=== PATIENT | female | born 1980 | race Caucasian/White ===

== ENCOUNTER 2018-05-01 09:13 | Observation (INO) | payer BC ==
[~2018-05-01] VITALS: Ht 160 cm; Wt 77.1 kg
[~2018-05-01 09:13] MED LIST: AMITIZA24 MCG PO; LEVOTHYROXINE88 MCG PO; METRONIDAZOLE500 MG PO; PANTOPRAZOLE SO40 MG PO; ULTRAM 50MG50 MG PO; Z.0.LEVOTHYROXINE50; ZOFRAN ODT4 MG PO
--- NOTE | 2018-05-01 09:15 | NUR ---
RECEIVED PT FROM THE LOBBY INTO ER 9. PT GOWNED AND PLACED ON THE MONITOR. C/O PAIN AND NUMBNESS ON THE LEFT SIDE OF HER BODY FROM HER HEAD DOWN TO HER FOOT. PT TEARFUL AND CONCERNED THAT IT MIGHT BE A STROKE BECAUSE HER BROTHER OF A STROKE AT AGE 45 AND HER SISTER OF A STROKE AT AGE 38. SAYS HER MOTHER HAS HAD 3 STROKES.
[2018-05-01] MEDS ORDERED: METOCLOPRAMIDE HCL 10 MG/2ML VIAL IV ONE (09:45)
[2018-05-01] MEDS ORDERED: DIPHENHYDRAMINE HCL INJ 50 MG/ML VIAL IV ONE (09:45)
[2018-05-01] MEDS ORDERED: SODIUM CHLORIDE 0.9% 1000ML 1,000 ML IV SCH (09:45)
--- NOTE | 2018-05-01 10:33 | Diagnostic Imaging Report ---
Examination: CT head without contrast Clinical Indication: Left-sided weakness. Technique: Transaxial noncontrast images from the skull base through the vertex were obtained. Sagittal and coronal reformatted images were done. Dose modulation, iterative reconstruction, and/or weight based adjustment of the mA/kV was utilized to reduce the radiation dose to as low as reasonably achievable. Comparison: None. Findings: Scalp: No abnormalities. Bones: Intact. No fractures. No blastic or lytic lesions. Brain sulci: Appropriate for patient's age. Ventricles: Normal in size and configuration. No hydrocephalus. Extra-axial space: No abnormalities. Parenchyma: No abnormal densities. No masses, hemorrhage, or acute or chronic cortical based vascular insults. Suprasellar region: No abnormalities. Craniocervical junction: The foramen magnum is patent. No Chiari one malformation. Impression: No intracranial abnormality. Signed by: Dr. Alexa Mart M.D. on 05/01/2018 10:30 AM
[2018-05-01] MEDS ORDERED: ASPIRIN 81 MG CHEW TAB PO ONE (10:45)
[2018-05-01 11:03] LABS: BASOPHILS # (AUTO) 0.1 (0.0-0.1); BASOPHILS % 0.9 % (0.0-1.0); EOSINOPHILS # (AUTO) 0.2 (0.0-0.4); EOSINOPHILS % 2.8 % (0.0-6.0); HEMATOCRIT 41.2 % (34.2-44.1); HEMOGLOBIN 14.2 g/dL (12.0-16.0); LYMPHOCYTES # (AUTO) 1.8 (1.0-3.2); MEAN CORPUSCULAR HEMOGLOBIN 32.1 pg (28-32); MEAN CORPUSCULAR HGB CONC 34.5 g/dL (31-35); MONOCYTES # (AUTO) 0.4 (0.2-0.8); MONOCYTES % 7.5 % (4.4-11.3); NEUTROPHILS # (AUTO) 2.9 (2.1-6.9); NEUTROPHILS % 54.4 % (38.7-80.0); PLATELET COUNT 251 x10e3/uL (140-360); RED BLOOD COUNT 4.43 x10e6/uL (3.6-5.1); RED CELL DISTRIBUTION WIDTH 12.9 % (11.7-14.4)
--- OUTSIDE RECORDS SUMMARY | 2018-05-01 11:14 | XMS REPORT ---
Author Author [facility] Address Unknown Phone Unavailable Care Team Providers Care Fruit Buyer Name Role Phone Hector ANN Unavailable Unavailable Problems This patient has no known problems. Allergies, Adverse Reactions, Alerts This patient has no known allergies or adverse reactions. Medications This patient has no known medications. Results Test Description Test Time Test Comments Text Results Atomic Results Result Comments CT BRAIN WO 2018-05-01 10:29:00 [facility] [address] [address] Patient Name: CHANDLER MARTINEZ MR #: [id number] : 1980 Age/Sex: 37/F Req #: [id number] [facility] Physician: Ordered by: CIARRA ANN MD Report #: [id number] Location: ER Room/Bed: Procedure: [id number] CT/CT BRAIN WO Exam Date: 05/01/18 Exam Time: 1000 REPORT STATUS: Signed Examination: CT head without contrast Clinical Indication: Left-sided weakness. Technique: Transaxial noncontrast images from the skull base through the vertex were obtained. Sagittal and coronal reformatted images were done. Dose modulation, iterative reconstruction, and/or weight based adjustment of the mA/kV was utilized to reduce the radiation dose to as low as reasonably achievable. Comparison: None. Findings: Scalp: No abnormalities. Bones: Intact. No fractures. No blastic or lytic lesions. Brain sulci: Appropriate for patient's age. Ventricles: Normal in size and configuration. No hydrocephalus. Extra-axial space: No abnormalities. Parenchyma: No abnormal densities. No masses, hemorrhage, or acute or chronic cortical based vascular insults. Suprasellar region: No abnormalities. Craniocervical junction: The foramen magnum is patent. No Chiari one malformation. Impression: No intracranial abnormality. Signed by: Dr. Alexa Mart M.D. on 05/01/2018 10:30 AM Dictated By: ALEXA SANTO MD [id number] Transcribed By: ALEXANDRA on 05/01/18 1030 COPY TO: CIARRA ANN MD
[2018-05-01] MEDS ORDERED: TRIAMTERENE-HCTZ1 EA PO (11:51)
[2018-05-01 11:56] LABS: ALANINE AMINOTRANSFERASE 20 IU/L (0-55); ALBUMIN/GLOBULIN RATIO 1.2 (0.8-2.0); ALKALINE PHOSPHATASE 65 IU/L (40-150); ANION GAP 15.8 mmol/L (8-16); BLOOD UREA NITROGEN 20 mg/dL (7-26); BUN/CREATININE RATIO 22 (6-25); CARBON DIOXIDE 20 mmol/L (22-29); CHLORIDE 102 mmol/L (98-107); CREATINE KINASE 213 IU/L (29-168); CREATININE, SERUM 0.91 mg/dL (0.57-1.11); EST GLOMERULAR FILTRATION RATE > 60 ML/MIN (60-); GLUCOSE 122 mg/dL (74-118); POTASSIUM 3.8 mmol/L (3.5-5.1); SODIUM 134 mmol/L (136-145)
[2018-05-01] MEDS ORDERED: HYDRALAZINE HCL 20 MG/ML VIAL IV STA (12:50)
--- NOTE | 2018-05-01 12:50 | NUR ---
SPOKE WITH ER PHYSICIAN ABOUT HYPERTENSION. SHE SAID SHE WILL ORDER SOMETHING. PT SITTING UPRIGHT ON THE STRETCHER RIGHT NOW. NAD. SHE IS PENDING AN MRI AND ADMISSION. PT SAYS SHE FEELS THE SAME. SHE SAID SHE FELT "ICKY" AFTER THE CONTRAST FOR THE CT EARLIER BUT SHE SAID THAT FEELING HAS WORN OFF NOW
--- NOTE | 2018-05-01 14:03 | Diagnostic Imaging Report ---
Examination: MRI BRAIN WITHOUT CONTRAST History: Left-sided weakness Comparison studies: Head CT performed earlier today. Technique: Sagittal T2; axial DWI, FLAIR, GRE or SWI, T1, Coronal FLAIR. Intravenous contrast: None Findings: Scalp: No abnormal signal. No masses. Bone marrow: Normal in signal intensity. Brain volume: Adequate for age. No volume loss. Ventricles: Normal in size and configuration. No hydrocephalus. Extra-axial spaces: No abnormalities. Parenchyma: No abnormal signal intensities. No masses, hemorrhage, acute or chronic vascular insults. Suprasellar and sellar region: No abnormalities. Craniocervical junction: No abnormalities. The foramen magnum is patent. No Chiari malformations. Vessels: Normal flow-voids in the arteries and sinuses. Additional findings:None. IMPRESSION: No acute intracranial abnormalities, specifically, no acute infarct. Signed by: Dr. Alexa Mart M.D. on 05/01/2018 1:59 PM
--- NOTE | 2018-05-01 14:54 | NUR ---
PATIENT RESTING QUIETLY WATCHING TV. NAD NOTED. UPDATED PT ON THE PLAN OF CARE. AWAITING A ROOM FOR ADMIT
[2018-05-01] MEDS ORDERED: AMLODIPINE BESYLATE 10 MG TAB PO SCH (15:45)
--- NOTE | 2018-05-01 15:45 | NUR ---
PT CALLED ME TO BEDSIDE AND SHE WAS IN TEARS. SHE STATED THAT SHE WANTS TO STAY BUT THAT SHE CAN'T. SHE SAID SHE HAS TO LEAVE BECAUSE HER KIDS ARE LOCKED OUT OF THE HOUSE AND SHE DOESN'T HAVE ANYONE WHO CAN LET THEM IN. I SPOKE TO THE ERP AND SHE SAID THAT PT WOULD HAVE TO SIGN OUT AMA. I WAS AT BEDSIDE WITH JAZ NURSE [employer]ER [employer] LOOM AND WE WERE DISCUSSING THE AMA PROCESS WITH THE PATIENT AND THEN DR. ENGLISH WALKED IN THE ROOM AND SAID THAT HE WAS DISCHARGING THE PATIENT HOME. HE TOLD HER THAT HER SYMPTOMS WERE RELATED TO HER HIGH BLOOD PRESSURE AND THAT STROKE WAS RULED OUT.
[2018-05-01 15:54] LABS: BILIRUBIN,URINE NEGATIVE (NEGATIVE); CLARITY,URINE CLOUDY (CLEAR); COLOR,URINE YELLOW (YELLOW); KETONES,URINE NEGATIVE (NEGATIVE); LEUKOCYTE ESTERASE ,URINE NEGATIVE (NEGATIVE); NITRITE,URINE NEGATIVE (NEGATIVE); PROTEIN,URINE DIPSTICK NEGATIVE (NEGATIVE); URINE UROBILINOGEN 0.2 mg/dL (0.2 - 1)
--- NOTE | 2018-05-01 15:55 | NUR ---
THE NORVASC WAS NOT GIVEN BECAUSE PT DID NOT WANT TO WAIT FOR MED ORDER TO CROSS OVER IN THE [facility] SO SHE SAID THAT SHE WOULD GO GET HER PRESCRIPTION FOR NORVASC FILLED RIGHT AWAY AND TAKE IT IMMEDIATELY
--- NOTE | 2018-05-01 16:00 | NUR ---
DISCHARGE INSTRUCTIONS GIVEN. FOLLOW UP CARE DISCUSSED. PT VERBALIZED UNDERSTANDING. DR. ENGLISH PRESCRIBED NORVASC. PRESCRIPTION WAS GIVEN TO THE PATIENT. PT LEFT ER AMBULATORY WITH STEADY GAIT TO POV
[2018-05-01 16:04] VITALS: BP 147/101
[2018-05-01 16:04] LABS: BACTERIA,URINE MANY /HPF
--- NOTE | 2018-05-01 16:13 | NUR ---
CALLED DR. BOCANEGRA TO NOTIFY HER THAT PATIENT WAS DISCHARGED BY DR. ENGLISH. GOT VOICEMAIL. LEFT A VM
--- NOTE | 2018-05-01 16:30 | Consultation ---
DATE OF CONSULTATION: May 01, 2018 NEUROLOGY CONSULTATION HISTORY OF PRESENT ILLNESS: Ms. Tabor is a 37-year-old right hand dominant woman with past medical history significant for pancreatitis and hyperthyroidism, admitted to [facility] on May 01, 2018, with symptoms suspicious for a stroke. Ms. Tabor endorses heaviness over the left side of her body, specifically her left arm and left leg. She does not report weakness in neither her left arm nor her left leg. However, she feels as though the left arm and left leg are "weighed down." Ms. Tabor endorses intermittent numbness and tingling affecting the left arm and left leg as well. The patient does not report a visual field cut or other disturbance, dysarthria, aphasia, facial weakness, or confusion. Ms. Tabor has not experienced similar symptoms previously. The above described symptoms began approximately 10 days ago. Ms. Tabor cannot say whether or not the symptoms began suddenly or came on gradually. However, she does report her symptoms have gradually worsened over the past 10 days. In addition to the above symptoms, Ms. Tabor endorses a headache. When questioned further, it appears the headache is referred neck pain. Ms. Tabor endorses low back pain as well. The patient describes the neck and low back pain as something "digging into it." The neck and low back pain are constant and are rated a 5 to 7 out of 10. Occasionally, there are superimposed, brief sharp pains occurring in the neck and low back. Ms. Tabor does not report photophobia, phonophobia, nausea, or vomiting. She does endorse dizziness but cannot further describe the sensation. Ms. Tabor has a family history significant for cardiovascular disease in multiple relatives. Therefore, due to the presence of the above symptoms, she presented to the emergency center at [facility] for further evaluation of a possible stroke. REVIEW OF SYSTEMS: Numbness and pain over the left arm and left leg, neck and low back pain, dizziness. Otherwise the 12 point review of systems is negative. PAST MEDICAL HISTORY: Prior history of hypertension, hyperthyroidism status post treatment with radiation, "liver stones," and history of pancreatitis. PAST SURGICAL HISTORY: Hysterectomy, right foot/ankle surgery, cholecystectomy, lumbar spine surgery, multiple GI stents. PAST HOSPITALIZATIONS: Surgeries/procedures as listed, childbirth times 1, pancreatitis times 3. FAMILY MEDICAL HISTORY: The patient's paternal grandparents are . Their medical histories are unknown. The patient's maternal grandparents are , both from coronary artery disease with myocardial infarctions. Ms. Tabor's father is from alcoholic cirrhosis. Her mother is . She had 3 strokes. The patient's siblings, 1 brother and 1 sister, are both from strokes. The brother at the age of 45 years. The sister at the age of 38 years. Ms. Tabor has 1 child, a daughter, who is alive. She has a history of Graves disease and reactive arthritis. SOCIAL HISTORY: The patient is . 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 The patient does report a history of tobacco use but quit smoking cigarettes 1 year ago. At present, the patient vapes. The patient does not report alcohol use. She does report occasional marijuana use. HOME MEDICATIONS: Reviewed. Please see the list of home medications available in the electronic medical record. ALLERGIES: PROMETHAZINE. NO KNOWN FOOD ALLERGIES. NO KNOWN ALLERGIES TO LATEX. NO KNOWN ALLERGIES TO IODINE OR OTHER CONTRAST MATERIALS. PHYSICAL EXAMINATION: VITAL SIGNS: Height 63 inches, weight 170 pounds, BMI 30.1 kg per meter squared. Blood pressure 162/114 mmHg. Pulse 74 beats per minute, respiratory rate 18 breaths per minute, oxygen saturation 99% on room air. GENERAL: The patient is awake and alert, does not appear distressed. Overweight. HEENT: Normocephalic, atraumatic. Pupils are equal, round, and reactive to light. Moist mucous membranes. NECK: Supple. No appreciable thyromegaly. No appreciable carotid bruits. CARDIOVASCULAR: S1, S2, regular rate and rhythm. No murmurs, rubs, or gallops. RESPIRATORY: Clear to auscultation bilaterally. No wheezes, rhonchi, or rales. EXTREMITIES: The skin is warm and dry. No clubbing, cyanosis, or edema. The posterior tibial and dorsalis pedis pulses are 2+ and symmetric. SKIN: There is a bruise with a central abrasion over the left foreleg. NEUROLOGIC: Memory/Attention: The patient is awake and alert. Oriented to person, place, time, and situation. Cranial Nerves: Cranial nerve 1--Not tested. Cranial nerve 2, 3, 4, and 6--Pupils are equal and round, react briskly to light (from 4 mm to 2 mm). Extraocular movements intact. No nystagmus. Cranial nerve 5--Sensation to light touch and pinprick is intact in the bilateral V1 through V3 distributions. Strength of the temporalis and masseter muscles is within normal limits. Cranial nerve 7--The face is symmetric as are all facial movements. Strength is within normal limits. Cranial nerve 8--Hearing is intact to finger rub bilaterally. Cranial nerve 9, 10--The soft palate elevates equally and symmetrically. Cranial nerve 11--Normal strength of the bilateral sternocleidomastoid and trapezius muscles. Cranial nerve 12--The tongue protrudes midline and moves symmetrically from side to side. Strength: Bulk is normal. Strength is 5/5 in the bilateral deltoids, biceps, triceps, wrist flexors and extensors, finger flexors and extensors, intrinsic hand muscles, hip flexors, knee flexors and extensors, ankle dorsiflexion and plantarflexion, and intrinsic foot muscles. Tone is normal. DTRs: Deep tendon reflexes are 2+ and symmetric at the triceps, biceps, brachioradialis, patellas, and Achilles. Plantar responses are flexor bilaterally. Sensation: Sensation is intact to light touch and pinprick in both arms and both legs. Cerebellar: Vlwaoc-dexv-ztxoxx and heel-cazares movements are intact without dysmetria or other impairment. Heel-cazares movements are slowed in the left leg secondary to pain. Gait: Deferred. Speech: Spontaneous speech is normal without appreciable dysarthria or aphasia. Repetition is intact. Involuntary Movements: None. Pronator Drift: None. LABORATORY DATA: A comprehensive metabolic panel is significant for a mildly decreased sodium of 134, a mildly decreased carbon dioxide of 20, and an elevated serum glucose of 122. Creatinine kinase 213, CK-MB 5.20, troponin I less than 0.001. The CBC with differential and platelets reveals a white blood cell count of 5.33 with a normal differential. The hemoglobin and hematocrit are 14.2 and 41.2, respectively. The platelet count is 251. DIAGNOSTIC STUDIES: Electrocardiogram May 01, 2018: Normal sinus rhythm at [address] of the brain without contrast May 01, 2018: On my review, there is no evidence of recent large territorial ischemia, hemorrhage, mass, or mass effect. Cerebral volumes are appropriate for age. There are no findings suggestive of chronic small-vessel ischemic disease. ASSESSMENT AND PLAN: Ms. Tabor is a 37-year-old woman with past medical history significant for tobacco use, who presents with pain and numbness over the left arm and left leg. Her neurological examination is nonfocal. Her laboratory data and other diagnostic studies have been reviewed and are documented above. In my opinion, it is highly unlikely the patient has experienced a stroke. Due to the duration of her symptoms, if she had experienced a stroke, one would expect to see an area of hypodensity on the CT of the brain without contrast. It is probable the patient's symptoms are due to left cervical and lumbosacral radiculopathies given the presence of pain along with the numbness and heavy sensation. RECOMMENDATIONS: 1. An MRI of the brain without contrast will be ordered to rule out a stroke. 2. If the MRI of the brain is negative for a stroke, consider NCV/EMG of the left arm and left leg as an outpatient for further evaluation of left cervical and lumbosacral radiculopathies. 3. Defer treatment of the remaining medical comorbidities to the primary and other services following the patient. Thank you for this consultation. I will continue to follow this patient while she remains in the hospital. Time spent: 70 minutes. Job#: [id number] ALEKSANDR MOTTA
--- NOTE | 2018-05-01 16:50 | History and Physical ---
[facility] PRIMARY CARE PROVIDER: Dr. Arian Ariza ADMITTING DIAGNOSES 1. Left-sided weakness. 2. Headache. 3. Hypertensive urgency. 4. Hypothyroidism. DISCHARGE DIAGNOSES 1. Left-sided weakness. 2. Headache. 3. Hypertensive urgency. 4. Hypothyroidism. BRIEF HISTORY: Ms. Tabor is a 37-year-old lady presenting with left-sided weakness she feels, and some generalized edema and a left-sided headache. She does have a family history of stroke at an early age. REVIEW OF SYSTEMS: She denies fever, chills or weight loss. She denies sinus congestion or sore throat. She denies chest pain or palpitation. She denies shortness breath, wheezing or cough. She denies abdominal pain, nausea, vomiting, or melena. She denied dysuria or flank pain. She denied rash or pruritus. She denied joint pain or swelling. She did complain of some swelling in her hands and feet. She had a right-sided headache. She denied vertigo or loss of consciousness. She denied depression, agitation, homicide, or suicidal ideation. PAST MEDICAL HISTORY: Significant for hypertension for which she was just recently started on Dyazide p.o. She also has hypothyroidism for which she takes 88 mcg of Synthroid. She has a history of lap padmini done 2 years ago. FAMILY HISTORY: Significant for hypertension and stroke. SOCIAL HISTORY: The patient is . [place]ian is her primary language. She does not smoke, drink or use illegal drugs, and is generally independent functioning. PHYSICAL EXAMINATION PSYCHIATRIC: She is alert and oriented times 3 with normal mood and affect. CONSTITUTIONAL: She has a normal body normal. Is in no acute distress. VITAL SIGNS: Blood pressure initially 165/117 and currently 148/104, pulse 78, respirations 18, O2 sat 98%, temperature 98.5. HEENT: Head is atraumatic. Her eyes are anicteric with clear conjunctiva. Ears and nares are without erythema or discharge. Oropharynx is clear. NECK: Supple no mass or thyromegaly. LYMPHATIC SYSTEM: She has no palpable cervical, axillary or inguinal adenopathy. CARDIOVASCULAR: Heart has a regular rate and rhythm without murmur or extra heart sounds. She has no carotid bruit. She has trace bipedal edema. She has palpable dorsal pedal pulses. RESPIRATORY: Lungs are clear to auscultation and percussion with normal respiratory effort. GASTROINTESTINAL: Abdomen is soft without organomegaly, masses or tenderness. She has normal bowel sounds present. CUTANEOUS: Her skin is warm dry to touch. No rash or skin breakdown. MUSCULOSKELETAL: Her joints are in normal alignment without erythema or swelling. She has no calf tenderness. NEUROLOGIC: Nonfocal with intact cranial nerves and no motor or sensory deficits. DIAGNOSTIC STUDIES: CT and MRI scan of the brain was both normal with no evidence of acute change or infarct. Her chemistry profile shows normal electrolytes. CO2 20, creatinine 0.91, BUN 20 for a normal GFR. Glucose 122. Transaminases, bilirubin and alk phos are normal. CBC shows a white count of 5.3 with a normal differential. Hemoglobin 14.2, hematocrit 41.2, and platelet count 251,000. IMPRESSION AND PLAN 1. Right-sided weakness and right-sided headache: This has now resolved and workup with computerized tomography and MRI was negative for stroke. Patient may have had a complex migraine. 2. Hypertensive urgency: Patient had just started on blood pressure medicines. Her pressure was significantly elevated on arrival. She was given hydralazine with some benefit. She was started on Norvasc 10 mg daily, which she will be discharged home on in addition to her Dyazide for blood pressure control. 3. Hypothyroidism: Will continue 88 mcg of Synthroid. 4. For prophylaxis, the patient was given Pepcid. HOSPITAL COURSE: The patient was admitted for observation. She requested discharge home after the MRI scan came back negative. She was questioning the swelling which she was told that her blood pressure being elevated most likely caused it, and that the combination of the Dyazide and Norvasc should resolve that problem. She was discharged to resume her home meds with the addition of Norvasc. She can resume a regular diet and activity. Follow up with her PCP within 2 weeks. Job#: [id number] CHELI
[2018-05-01] MEDS ORDERED: HYDROMORPHONE 2MG/ML 2 MG/ML ML IV ONE (18:15)
[2018-05-02] MEDS ORDERED: LEVOTHYROXINE SODIUM 88 MCG TAB PO SCH (06:00)
[2018-05-02] MEDS ORDERED: ASPIRIN 81 MG ENTERIC COATED PO SCH (09:00)
== END 2018-05-01 16:00 | disposition home or self-care (01) ==
LOC: ER 09:13 → UNDOADMOB 10:46 → ERHOLD 10:46
PROVIDERS: ADMIT Internal Medicine; ATTEND Internal Medicine
DX: R53.1 Weakness (principal); R51 Headache; I16.0 Hypertensive urgency; E03.9 Hypothyroidism, unspecified; Z82.3 Family history of stroke; I10 Essential (primary) hypertension; Z90.49 Acquired absence of other specified parts of digestive tract
CPT/HCPCS: 36415; 70450; 70551; 80053; 81001; 82550; 82553; 84484; 85025; 87086; 93005; 99284; G0378; J0360; J1170; J1200; J2765; J7030

== ENCOUNTER 2020-08-07 19:19 | Emergency (ER) | payer BC, OTHER ==
[~2020-08-07] VITALS: Ht 160 cm; Wt 77.1 kg
[~2020-08-07 19:19] MED LIST changes: +TRIAMTERENE-HCTZ1 EA PO
[2020-08-07] MEDS ORDERED: CEFAZOLIN SOD IV ONE (19:30)
[2020-08-07] MEDS ORDERED: MORPHINE SULFATE INJ 2 MG/ML SYR IV STA ×2 (19:30→20:03)
[2020-08-07] MEDS ORDERED: DEXTROSE 5% IV ONE (19:30)
[2020-08-07] MEDS ORDERED: ONDANSETRON HCL INJ 2MG/ML 2ML 2 MG/ML VIAL IV STA (19:30)
[2020-08-07 19:40] LABS: BASOPHILS # (AUTO) 0.1 (0.0-0.1); BASOPHILS % 0.9 % (0.0-1.0); EOSINOPHILS # (AUTO) 0.2 (0.0-0.4); EOSINOPHILS % 2.4 % (0.0-6.0); HEMATOCRIT 39.9 % (34.2-44.1); HEMOGLOBIN 13.6 g/dL (12.0-16.0); LYMPHOCYTES # (AUTO) 4.3 (1.0-3.2); LYMPHOCYTES % 50.2 % (18.0-39.1); MEAN CORPUSCULAR HEMOGLOBIN 32.1 pg (28-32); MEAN CORPUSCULAR HGB CONC 34.1 g/dL (31-35); MEAN CORPUSCULAR VOLUME 94.1 fL (81-99); MONOCYTES # (AUTO) 0.7 (0.2-0.8); NEUTROPHILS # (AUTO) 3.2 (2.1-6.9); PLATELET COUNT 281 x10e3/uL (140-360); RED BLOOD COUNT 4.24 x10e6/uL (3.6-5.1); RED CELL DISTRIBUTION WIDTH 13.8 % (11.7-14.4)
[2020-08-07] MEDS ORDERED: TETANUS/DIPHTHERIA TOX ADULT 0.5 ML SYR IM ONE (19:45)
[2020-08-07] MEDS ORDERED: MORPHINE SULFATE INJ 4 MG/ML INJ 1ML ONE (19:46)
[2020-08-07] MEDS ORDERED: TETANUS/DIPHTHERIA TOX ADULT 0.5 ML SYR ONE (19:46)
[2020-08-07] MEDS ORDERED: CEFAZOLIN SOD 1 GM/NS 50ML 50 ML IV ONE (19:46)
[2020-08-07 19:59] LABS: ANION GAP 17.9 mmol/L (8-16); BLOOD UREA NITROGEN 16 mg/dL (7-26); BUN/CREATININE RATIO 19 (6-25); CALCIUM 8.7 mg/dL (8.4-10.2); CARBON DIOXIDE 21 mmol/L (22-29); CHLORIDE 103 mmol/L (98-107); CREATININE, SERUM 0.85 mg/dL (0.57-1.11); EST GLOMERULAR FILTRATION RATE > 60 ML/MIN (60-); GLUCOSE 169 mg/dL (74-118); POTASSIUM 3.9 mmol/L (3.5-5.1); SODIUM 138 mmol/L (136-145)
[2020-08-07 20:49] VITALS: BP 139/95
== END 2020-08-07 20:30 | disposition other institution (70) ==
LOC: ER 19:26
DX: S01.551A Open bite of lip, initial encounter (principal); W54.0XXA Bitten by dog, initial encounter; Y92.008 Other place in unspecified non-institutional (private) residence as the place of occurrence of the external cause; E03.9 Hypothyroidism, unspecified; K86.9 Disease of pancreas, unspecified
CPT/HCPCS: 36415; 80048; 85025; 90471; 90714; 99284; J0690; J2270 ×2; J2405